=== PATIENT | male | born 1960 | race Caucasian/White ===

== ENCOUNTER → 2024-01-01 | Outpatient (CLI) | payer MEDICARE | LOC: M PLARAD 11:49 | PROVIDERS: ATTEND Neuromusculoskeletal Medicine & OMM | DX: R91.8 Other nonspecific abnormal finding of lung field (principal) | CPT/HCPCS: 78815; A9552 ==

== ENCOUNTER → 2024-06-04 | Outpatient (REF) | payer MEDICARE | LOC: M SFHCDERM 17:44 | PROVIDERS: ATTEND Physician Assistant | DX: B07.8 Other viral warts (principal) ==